=== PATIENT | female | born 1965 | race Caucasian/White ===

== ENCOUNTER 2023-04-03 10:46 | Day surgery (SDC) | payer OTHER ==
[~2023-04-03] VITALS: Ht 165.1 cm; Wt 71.6 kg
[2023-04-03] MEDS ORDERED: OXYCODONE-ACET1 EAC3 PO (11:41)
[2023-04-03] MEDS ORDERED: Amoxicillin500 MG PO (11:41)
[2023-04-03] MEDS ORDERED: FUROSEMIDE20 MG PO (11:41)
[2023-04-03] MEDS ORDERED: DULOXETINE HCL60 M1 PO (11:42)
[2023-04-03] MEDS ORDERED: GABAPENTIN600 MG PO (11:42)
[2023-04-03] MEDS ORDERED: LEVETIRACETAM50014 PO (11:42)
[2023-04-03] MEDS ORDERED: HYDCHL25 PO (11:42)
[2023-04-03] MEDS ORDERED: Acetaminophen650 M1 (11:44)
--- NOTE | 2023-04-03 13:13 | NUR ---
04/03/23 1313 Azalea Jones 20ML OF ROPIVACAINE 0.5% MIXED WITH 0.1ML OF EPI (1MG/ML) BY DR MORALES TO MAKE ROPIVACAINE 0.5% WITH EPI 1:200,000 FOR INJECTION AT THE OPSITE BY DR GAO.
[2023-04-03 14:55] VITALS: BP 144/88
--- NOTE | 2023-04-03 15:29 | NUR ---
04/03/23 1529 Paige Garcia AND [facility]ER HOME WITH PT.
== END 2023-04-03 15:29 | disposition home or self-care (01) ==
LOC: ORSCSDS 10:46
PROVIDERS: Podiatrist Foot & Ankle Surgery
PROC: 0SGM04Z Fusion of Right Metatarsal-Phalangeal Joint with Internal Fixation Device, Open Approach (ICD-10-PCS; principal; 2023-04-03 12:30)
PROC: 0SGP04Z Fusion of Right Toe Phalangeal Joint with Internal Fixation Device, Open Approach (ICD-10-PCS; principal; 2023-04-03 12:30)
PROC: 0QBN0ZZ Excision of Right Metatarsal, Open Approach (ICD-10-PCS; principal; 2023-04-03 12:30)
DX: M20.21 Hallux rigidus, right foot (principal); M19.071 Primary osteoarthritis, right ankle and foot; M77.41 Metatarsalgia, right foot; M20.41 Other hammer toe(s) (acquired), right foot; I10 Essential (primary) hypertension; F41.9 Anxiety disorder, unspecified; F32.A Depression, unspecified; G62.9 Polyneuropathy, unspecified; Z79.899 Other long term (current) drug therapy
CPT/HCPCS: 93005; 93010; C1713; J0171; J0690; J1100; J2405; J2704; J2795; J3010; J7120